=== PATIENT | female | born 1955 | race Caucasian/White ===

== ENCOUNTER 2020-04-03 06:00 | Outpatient (RCR) | payer OTHER, SELFPAY | END 2020-05-02 23:59 | disposition home or self-care (01) | LOC: SR3 06:00 | PROVIDERS: PCP Physician Assistant Medical; Referring Provider Physician Assistant Medical; Visit Provider Physician Assistant Medical | DX: I69.30 Unspecified sequelae of cerebral infarction (principal) | CPT/HCPCS: 97110; 97162 ==

== ENCOUNTER 2020-05-03 06:00 | Outpatient (RCR) | payer OTHER, SELFPAY | END 2020-06-02 23:59 | disposition home or self-care (01) | LOC: SR3 06:00 | PROVIDERS: PCP Physician Assistant Medical; Referring Provider Physician Assistant Medical; Visit Provider Physician Assistant Medical | DX: I69.30 Unspecified sequelae of cerebral infarction (principal); I63.9 Cerebral infarction, unspecified | CPT/HCPCS: 92507; 92523; 97110; 97150 ==

== ENCOUNTER 2020-06-03 06:00 | Outpatient (RCR) | payer OTHER, SELFPAY | END 2020-07-02 23:59 | disposition home or self-care (01) | LOC: SR3 06:00 | PROVIDERS: PCP Physician Assistant Medical; Visit Provider Physician Assistant Medical | DX: I69.30 Unspecified sequelae of cerebral infarction (principal) | CPT/HCPCS: 92507 ==

== ENCOUNTER 2020-07-13 12:00 | Outpatient (CLI) | payer OTHER, SELFPAY ==
--- NOTE | 2020-07-13 12:07 | MM_ITS ---
WS: [id number] ADDITIONAL VIEWS BILATERAL MAMMOGRAM HISTORY: ABNORMAL MAMMOGRAM COMPARISON: 06/13/2020. Spot compression views each breast breast in CC, MLO projections and true ML submitted. RIGHT: 8 mm ovoid nodule in the anterior RIGHT breast near 9:00 for which ultrasound is recommended. LEFT breast: High density nodule described on the prior mammogram corresponds to a mole. There is an additional lobulated soft tissue nodule measuring 7 mm in the medial inferior LEFT breast that needs further evaluation with ultrasound. MM/[place] [id number] IMPRESSION: BI-RADS: 0-Incomplete: Need additional imaging evaluation FOLLOW UP: Need Additional Imaging Bilateral breast ultrasound recommended. Patient left before ultrasound was per formed as she was not feeling well on the day of this mammogram.
== END 2020-07-13 12:01 | disposition home or self-care (01) ==
LOC: RADSHAW 12:05
PROVIDERS: PCP Physician Assistant Medical; Visit Provider Physician Assistant Medical
DX: R92.8 Other abnormal and inconclusive findings on diagnostic imaging of breast (principal)
CPT/HCPCS: 77066

== ENCOUNTER 2020-08-08 13:49 | Outpatient (CLI) | payer OTHER, SELFPAY ==
--- NOTE | 2020-08-08 14:09 | US_ITS ---
WS: [id number] ULTRASOUND BILATERAL BREAST HISTORY: ABNORMAL FINDING ON BREAST IMAGING COMPARISON: 07/13/2020 and 06/13/2020. TECHNIQUE: 2-D and Doppler. RIGHT breast: Ultrasound directed to the anterior RIGHT breast at 9:00. There is a hypoechoic area wh ich is ovoid measuring 8 x 3 x 5 mm. No increased vascularity. It appears benign. LEFT breast: Hypoechoic area at 9:00, 5 cm from the nipple corresponds in shape and size to the mammo graphic abnormality measuring 5 x 8 x 3 mm. US/US breast BI limited* [id number] IMPRESSION: BI-RADS: 3-Probably Benign FOLLOW-UP: 6 Month Follow-up Recommend 6 month bilateral mammogram follow-up and ultrasound. There are sever al, probably benign-appearing nodules, one within each breast. These nodules s hould be followed over a total of 2 years unless they become more suspicious. S ix-month ultrasound and mammogram follow-up recommended at this time.
== END 2020-08-08 13:50 | disposition home or self-care (01) ==
PROVIDERS: PCP Physician Assistant Medical; Visit Provider Physician Assistant Medical
DX: R92.8 Other abnormal and inconclusive findings on diagnostic imaging of breast (principal); N64.89 Other specified disorders of breast
CPT/HCPCS: 76642

== ENCOUNTER 2021-01-31 10:04 | Outpatient (CLI) | payer OTHER, SELFPAY ==
--- NOTE | 2021-01-31 10:12 | MM_ITS ---
WS: [id number] DIAGNOSTIC BILATERAL DIGITAL MAMMOGRAM WITH CAD Bilateral breast ultrasound, limited HISTORY: ABNORMAL FINDING ON BREAST IMAGING COMPARISON: 07/13/2020 and 06/13/2020. TECHNIQUE: Bilateral craniocaudad, mediolateral oblique, and mediolateral views are submitted. Spot c ompression views in CC and MLO projections, bilateral. Computer aided detection utilized. Breast composition: There are scattered areas of fibroglandular density. No change in appearance of t he breasts since the prior study. Ovoid 8mm nodule medial to the anterior RIGHT breast is stable. Thi s is near the 9:00 axis. The additional very subtle hypoechoic nodule in the medial LEFT breast seen best on the CC projection is also unchanged in size measuring 8 mm. No new or suspicious masses or ca lcifications. Bilateral breast ultrasound, limited. RIGHT breast: Ovoid hypoechoic nodule at 9:00, 1 cm from the nipple measures 8.4 mm is unchanged. LEFT breast: Linear hypoechoic nodule at 9:00 measures approximately 5 mm. May not correspond to the mammographic abnormality. MM/[place] [id number] IMPRESSION: BI-RADS: 3-Probably Benign FOLLOW UP: 1 Year Follow-up Recommend diagnostic imaging follow-up in one year. Spot compression views and ultrasound may be necessary to reevaluate these subtle asymmetries which have b een stable since 06/13/2020.
== END 2021-01-31 10:05 | disposition home or self-care (01) ==
PROVIDERS: PCP Physician Assistant Medical; Visit Provider Physician Assistant Medical
DX: R92.8 Other abnormal and inconclusive findings on diagnostic imaging of breast (principal); N63.15 Unspecified lump in the right breast, overlapping quadrants; N63.25 Unspecified lump in the left breast, overlapping quadrants
CPT/HCPCS: 76641; 77066

== ENCOUNTER → 2021-09-12 11:04 | Outpatient (BNVA) | payer OTHER, SELFPAY | PROVIDERS: PCP Nurse Practitioner Family; Visit Provider Nurse Practitioner Family | DX: E03.9 Hypothyroidism, unspecified (principal); E78.5 Hyperlipidemia, unspecified; I10 Essential (primary) hypertension | CPT/HCPCS: 85025 ==

== ENCOUNTER → 2021-12-18 10:33 | Outpatient (BNVA) | payer OTHER, SELFPAY | PROVIDERS: PCP Nurse Practitioner Family; Visit Provider Internal Medicine Rheumatology | DX: R21 Rash and other nonspecific skin eruption (principal); R76.8 Other specified abnormal immunological findings in serum; Z11.59 Encounter for screening for other viral diseases; L43.9 Lichen planus, unspecified | CPT/HCPCS: 36415; 86021; 86036; 86160; 86162; 86235; 86255; 86376; 86803 ==

== ENCOUNTER → 2023-01-13 13:08 | Outpatient (BNVA) | payer OTHER, SELFPAY | PROVIDERS: PCP Nurse Practitioner Family; Visit Provider Nurse Practitioner Family | DX: L57.0 Actinic keratosis (principal); L43.8 Other lichen planus; L57.8 Other skin changes due to chronic exposure to nonionizing radiation; L81.4 Other melanin hyperpigmentation; L85.3 Xerosis cutis; D22.5 Melanocytic nevi of trunk; Z71.89 Other specified counseling | CPT/HCPCS: 17000; 17003; 99214 ==

== ENCOUNTER → 2023-03-19 14:12 | Outpatient (BNVA) | payer OTHER, SELFPAY | PROVIDERS: PCP Nurse Practitioner Family; Visit Provider Nurse Practitioner Family | DX: L43.8 Other lichen planus (principal); L57.8 Other skin changes due to chronic exposure to nonionizing radiation; L81.4 Other melanin hyperpigmentation; L85.3 Xerosis cutis; D22.5 Melanocytic nevi of trunk | CPT/HCPCS: 99213 ==